=== PATIENT | male | born 1990 | race Caucasian/White ===

== ENCOUNTER 2021-03-21 15:15 | Emergency (ER) | payer OTHER, SELFPAY ==
[2021-03-21 15:32] VITALS: BP 115/72; PULSE 70; RESP 19; TEMP 37.1; O2SAT 100; BMI 34.2
--- NOTE | 2021-03-21 15:45 | XRR_ITS ---
PROCEDURE INFORMATION: Exam: XR Right Ankle Exam date and time: 03/21/2021 3:45 PM Age: 30 years old Clinical indication: Injury or trauma; Fall; Work related; Fracture, traumatic; Closed fracture; Fibula; Right; Additional info: Deformity TECHNIQUE: Imaging protocol: XR Right ankle. Views: 3 or more views. COMPARISON: No relevant prior studies available. FINDINGS: Bones/joints: Distal fibular diaphyseal comminuted fracture with approximately 1/4 shaft displacement. Medial displacement of the distal tibia relative to talus by approximately 9.5 mm with widening of the medial clear space. Small calcified plantar calcaneal heel spur. Soft tissues: Normal. XR/XR ankle RT min 3V* [id number] IMPRESSION: 1. Distal fibular diaphyseal comminuted fracture with approximately 1/4 shaft displacement. 2. Medial displacement of the distal tibia relative to talus by approximately 9.5 mm with widening of the medial clear space. 3. Small calcified plantar calcaneal heel spur.
--- NOTE | 2021-03-21 15:46 | W.ED.EXTPRO ---
HPI - Extremity Problem General: Chief complaint: Extremity Injury, Lower Stated complaint: R LEG INJURY Time Seen by Provider: 03/21/21 15:42 History of Present Illness: HPI Narrative: Patient bucked off horse and then know exactly what happened whether his ankle was caught between the horse and the fence whether he come down on it but does have obvious deformity to the right ankle. Denies any other injury and denies loss of consciousness. MD Complaint: joint pain Onset (ago): minute(s) Pain Consistency: constant Location: right and lower extremity Severity scale (1-10): 7 Quality: aching Relieving factors: immobilization Exacerbating factors: range of motion and palpation Associated symptoms: Reports no associated symptoms; Deny chest pain, fever(s) or rash Review of Systems Const: Denies: fever(s), chills or body aches Eyes: Denies: change in vision or blurry vision ENMT: Denies: throat pain or nasal congestion Card: Denies: chest pain or dyspnea on exertion Resp: Denies: dyspnea, productive cough or non-productive cough GI: Denies: abdominal pain, nausea or vomiting : Denies: difficulty urinating Musc: Reports: joint pain, joint swelling and limited range of motion; Denies: extremity pain Skin/Breast: Denies: rash Neuro: Denies: headache(s) Psych: Denies: anxiety or depression Armando/Lymph: Denies: easy bruising Physical Exam Const: COMMON NORMALS: patient oriented x3 GENERAL APPEARANCE: cooperative Cardio: COMMON NORMALS: regular rate and regular rhythm RATE: regular rate RHYTHM: regular rhythm Extremity: RIGHT LOWER EXTREMITY: Yes foot & digits (Obvious deformity. Moderate swelling. Distal neurovascular intact) Neuro: COMMON NORMALS: patient oriented x3 Course Vital Signs: Vital signs: Vital Signs Temperature 98.8 F 03/21/21 15:32 Pulse Rate 70 03/21/21 15:32 Respiratory Rate 19 H 03/21/21 15:32 Blood Pressure 115/72 03/21/21 15:32 Pulse Oximetry 100 03/21/21 15:32 Coding Level of Care Code ED Trim Machine Adjuster for Chg Fwd Exam Expanded Problem Focused
--- NOTE | 2021-03-21 15:55 | XRR_ITS ---
PROCEDURE INFORMATION: Exam: XR Right Tibia and Fibula Exam date and time: 03/21/2021 3:55 PM Age: 30 years old Clinical indication: Condition or disease; Other: Fracture; Additional info: Ankle fracture, eval proximal TECHNIQUE: Imaging protocol: XR Right tibia and fibula. Views: 2 views. COMPARISON: CR (LOW EXM, ) 03/21/2021 3:51:23 PM FINDINGS: Bones/joints: Redemonstrated is mildly displaced and angulated fracture of the distal shaft of the right fibula, approximately 5-6 cm from tip of the lateral malleolus. Tibia intact. There is again medial displacement of the distal tibia with respect to the talus. Soft tissues: Associated soft tissue swelling. XR/XR tibia fibula LT 2V [id number] IMPRESSION: 1. Fracture of the distal shaft of the right fibula with mild displacement. 2. Medial displacement of the tibia with respect to the talus.
[2021-03-21 16:26] VITALS: RESP 18; O2SAT 100
[2021-03-21] MEDS: morphine 4 mg/mL SDV 1 mL IVP (16:26)
--- NOTE | 2021-03-21 17:22 | XRR_ITS ---
PROCEDURE INFORMATION: Exam: XR Right Ankle Exam date and time: 03/21/2021 5:22 PM Age: 30 years old Clinical indication: Injury or trauma; Fall; Work related; Blunt trauma; Ankle; Right; Additional info: Post reduction TECHNIQUE: Imaging protocol: XR Right ankle. Views: 3 or more views. COMPARISON: CR (LOW EXM, ) 03/21/2021 3:51 PM FINDINGS: Tubes, catheters and devices: Splint material seen about the ankle. Bones/joints: Again seen is a distal fibular diaphyseal displaced fracture similar to prior exam. Medial displacement of the distal tibia relative to the talus is again seen with some reduction compared to prior exam, however, persistent displacement is still present. Soft tissues: Normal. XR/XR ankle RT min 3V* [id number] IMPRESSION: 1. Again seen is a distal fibular diaphyseal displaced fracture similar to prior exam. 2. Medial displacement of the distal tibia relative to the talus is again seen with some reduction compared to prior exam, however, persistent displacement is still present. 3. Splint material seen about the ankle.
--- NOTE | 2021-03-21 17:50 | XRR_ITS ---
PROCEDURE INFORMATION: Exam: XR Right Ankle Exam date and time: 03/21/2021 5:50 PM Age: 30 years old Clinical indication: Injury or trauma; Fall; Work related; Blunt trauma; Ankle; Right; Additional info: Additional manipulation of reduction, ap TECHNIQUE: Imaging protocol: XR Right ankle. Views: 1 or 2 views. COMPARISON: CR (LOW EXM, ) 03/21/2021 5:35 PM FINDINGS: Tubes, catheters and devices: Splint material seen about the ankle. Bones/joints: Distal fibular comminuted mildly displaced fracture again seen. Mild medial displacement of the distal tibia relative to the talus with widening of the medial clear space again seen measuring up to approximately 10 mm similar to prior exam. Soft tissues: Normal. XR/XR ankle RT 1V [id number] IMPRESSION: 1. Distal fibular comminuted mildly displaced fracture again seen. 2. Mild medial displacement of the distal tibia relative to the talus with widening of the medial clear space again seen measuring up to approximately 10 mm similar to prior exam. 3. Splint material seen about the ankle.
[2021-03-21] MEDS: ondansetron 2 mg/ML SDV 2 mL 4 MG IVP ×2 (19:26→19:27)
[2021-03-21] MEDS: sodium chloride 0.9% 1,000 ML 125 ML IV (19:27)
[2021-03-21 19:28] VITALS: PULSE 78; RESP 18; O2SAT 98
--- NOTE | 2021-03-23 11:48 | DCPLANNER ---
blood bank business manager had message to schedule a follow up appointment for patient with ortho. blood bank business manager called the ortho clinic, spoke with Nia, gave clinic patients information. blood bank business manager was told that patients information would be printed and reviewed. Clinic will call patient with appointment information.
--- NOTE | 2021-03-24 05:56 | DCPLANNER ---
Patient has a follow up appointment scheduled for Wednesday, March 24, 2021 at 1:[address] Singh at [facility]. Clinic will call patient with appointment information.
--- NOTE | 2021-04-02 00:10 | W.ED.EXTPRO ---
HPI - Extremity Problem General: Chief complaint: Extremity Injury, Lower Stated complaint: R LEG INJURY Time Seen by Provider: 03/21/21 15:42 History of Present Illness: HPI Narrative: See documentation by Darshan Robins NP, I have reviewed documentation, reperformed king portions of E/M and agree as documented. Pain Consistency: constant Location: right and lower extremity Severity scale (1-10): 7 Quality: aching Relieving factors: immobilization Exacerbating factors: range of motion and palpation Review of Systems Narrative: See addendum to Darshan Robins NP note. Reperformed. PFSH ED PFSH: Social History Smoking and tobacco status: never smoked Physical Exam Narrative: EXAM NARRATIVE: See addendum to Darshan Robins NP note. Reperformed. Procedures Orthopedic Joint Reduction Joint #1: Time Out Performed: Yes Side: right Joint Reduction Location: ankle Analgesia: procedural sedation Technique used: traction/counter-traction Post-reduction neuro exam: intact Post-reduction vascular: intact Post Reduction X-Ray Obtained: Yes Post Reduction X-Ray Results: reduced Splint Applied: Yes Patient Tolerated Procedure: well Additional Comments: fracture and dislocation Procedural Sedation Indication: fracture/dislocation reduction ASA Class: I Preparation: teletypesetter monitor applied, pulse oximeter, supplemental O2 applied, suction/airway equipment at bedside and IV secured IV Propofol dose (mg): 100 Patient Tolerated Procedure: well Complications: none Course ED course: See addendum to Darshan Robins NP note. As noted. Vital Signs: Vital signs: Vital Signs Temperature 98.8 F 03/21/21 15:32 Pulse Rate 78 03/21/21 19:28 Respiratory Rate 18 03/21/21 19:28 Blood Pressure 115/72 03/21/21 15:32 Pulse Oximetry 98 03/21/21 19:28 Discharge Plan Discharge Patient Disposition: Home Clinical Impression: Acute disruption of syndesmosis of ankle joint, Fracture of distal end of right fibula Condition: Stable Prescriptions: New oxycodone 5 mg tablet 5 mg PO Q4H PRN (Reason: pain) Qty: 30 RF: 0 Discharge Orders: Discharge ED (Routine); Ordered 03/21/21 Ordered By: Lonnie Jovel Discharge Diet: Usual diet Discharge Activity: Limit activity as instructed Patient Instructions: Ankle Fracture (ED), Procedural Sedation (ED), Opioid Safety Activity Restrictions/Additional Instructions: Thank you for visiting the emergency department. You were seen and evaluated for leg injury. You were found to have a distal fibula fracture with disruption of the ligaments in your ankle. This was reduced and splinted at bedside. You require follow-up with orthopedic surgery and should not bear weight on this joint until okayed by the orthopedic surgeon. I will contact our immigration case manager for help with scheduling the appointment early next week, likely Tuesday. You will be given a prescription for pain medication. You should use Tylenol and ibuprofen in addition to this. Return to the emergency department for sensory changes, uncontrolled pain, color changes, or anything else that you are concerned about and feel needs emergency department evaluation. Coding Level of Care Code ED Drafting Clerk for Son Aburto
--- NOTE | 2021-04-03 11:10 | DCPLANNER ---
Patient had a follow up appointment scheduled for 03.24.21 with ortho - patient did attend appointment.
== END 2021-03-21 19:29 | disposition home or self-care (01) ==
PROVIDERS: Emergency Provider Emergency Medicine
DX: S82.831A Other fracture of upper and lower end of right fibula, initial encounter for closed fracture (principal); S82.301A Unspecified fracture of lower end of right tibia, initial encounter for closed fracture; V80.010A Animal-rider injured by fall from or being thrown from horse in noncollision accident, initial encounter
CPT/HCPCS: 27788; 73590; 73600; 73610; 96361; 96374; 96375; 96376; 99284; J2270; J2405; J7030

== ENCOUNTER → 2021-03-24 13:51 | Outpatient (BNVA) | payer OTHER, SELFPAY | PROVIDERS: Referring Provider Nurse Practitioner Family; Visit Provider Orthopaedic Surgery | DX: Z01.812 Encounter for preprocedural laboratory examination (principal); Z20.822 Contact with and (suspected) exposure to COVID-19 | CPT/HCPCS: 87635 ==